=== PATIENT | female | born 1995 | race Caucasian/White ===

== ENCOUNTER → 2016-07-01 | Outpatient (CLI) | payer OTHER ==
[2016-07-01 17:23] LABS: Anion Gap 11 mmol/L; Blood Urea Nitrogen 11 mg/dL (7-17); Calcium 9.6 mg/dL (8.4-10.2); Carbon Dioxide 25 mmol/L (22-30); Chloride 105 mmol/L (98-107); Glucose 87 mg/dL (74-99); Non-African American GFR(MDRD) >60 (>60 ml/min/1.73 sqM); Sodium 141 mmol/L (137-145)
[2016-07-01 17:53] LABS: Hepatitis B Surface Ag Index 0.07
[2016-07-01 17:59] LABS: Hepatitis B Core IgM Index 0.05
[2016-07-01 18:12] LABS: Hepatitis C Virus IgG Ab Reactive (Negative)
[2016-07-02 07:18] LABS: HIV-1/HIV-2 Ab Screen NONREAC (NON REAC)
[2016-07-03 14:36] LABS: Hepatits C Virus RNA, Quant <12 IU/mL (<12); LOG HCV IU/mL <1.08 (<1.08)
== END ==
LOC: LABWHC1 16:45
PROVIDERS: ATTEND Internal Medicine Infectious Disease
DX: B18.2 Chronic viral hepatitis C (principal)
CPT/HCPCS: 36415; 80048; 80074; 87389; 87522

== ENCOUNTER 2016-11-20 20:27 | Emergency (ER) | payer OTHER ==
[2016-11-20 20:35] VITALS: BP 117/65; PULSE 88; RESP 18; TEMP 98.6
--- NOTE | 2016-11-20 20:38 | ED ---
Extremity Problem HPI - General Chief complaint: Extremity Problem,Nontraumatic Stated complaint: Leg Pain Time Seen by Provider: 11/20/16 20:33 Source: patient Mode of arrival: ambulatory Limitations: no limitations - History of Present Illness Initial comments: 21-year-old male patient presents to emergency department for evaluation of a bruise to her left upper thigh. Patient states she does not recall any injury to this area. Patient is concerned because the area feels hard that she may have a blood clot. Patient has no history of blood clots or coagulation abnormalities. Patient denies any pain to the area. Patient denies any difficulty ambulating, hip pain, or knee pain. He denies any fever, chills, nausea, vomiting, dizziness, weakness, palpitations, shortness of breath or chest pain. - Related Data Previous Rx's Medication Instructions Recorded Ibuprofen [Motrin] 600 mg PO Q8HR PRN #30 tab 10/17/15 traMADol HCl [Ultram] 50 mg PO Q6H PRN #20 tab 10/17/15 Allergies Allergy/AdvReac Type Severity Reaction Status Date / Time No Known Allergies Allergy Verified 11/20/16 20:35 Review of Systems ROS Statement: Those systems with pertinent positive or pertinent negative responses have been documented in the HPI. ROS Other: All systems not noted in ROS Statement are negative. Past Medical History Past Medical History: No Reported History History of Any Multi-Drug Resistant Organisms: None Reported Past Surgical History: No Surgical Hx Reported Past Psychological History: Bipolar Smoking Status: Current every day smoker Past Alcohol Use History: Occasional Past Drug Use History: None Reported General Exam Limitations: no limitations General appearance: alert, in no apparent distress Head exam: Present: atraumatic, normocephalic, normal inspection Eye exam: Present: normal appearance, PERRL, EOMI. Absent: scleral icterus, conjunctival injection, periorbital swelling Respiratory exam: Present: normal lung sounds bilaterally. Absent: respiratory distress, wheezes, rales, rhonchi, stridor Cardiovascular Exam: Present: regular rate, normal rhythm, normal heart sounds. Absent: systolic murmur, diastolic murmur, rubs, gallop, clicks GI/Abdominal exam: Present: soft, normal bowel sounds. Absent: distended, tenderness, guarding, rebound, rigid Extremities exam: Present: full ROM, normal capillary refill, other. Absent: normal inspection (Small half-dollar size area of ecchymosis noted to the left upper thigh, purple in color. Tender to palpation.), tenderness, pedal edema, joint swelling, calf tenderness Neurological exam: Present: alert, oriented X3, CN II-XII intact Psychiatric exam: Present: normal affect, normal mood Skin exam: Present: warm, dry, intact, normal color. Absent: rash Course Vital Signs 11/20/16 20:33 Temperature 98.6 F Pulse Rate 88 Respiratory 18 Rate Blood Pressure 117/65 O2 Sat by Pulse 99 Oximetry Medical Decision Making - Medical Decision Making 21-year-old female patient presented to emergency room in stable evaluation of a bruise to her left upper thigh. Patient was concerned that she may have a blood clot. No other signs or symptoms of blood clot present. Did discuss with patient the nature of a bruise, and a blood clot is very unlikely. Patient instructed to follow up with her primary care physician for recheck in one to 2 days. Patient was instructed to return for any new, worsening, or concerning symptoms. Disposition Clinical Impression: Ecchymosis Disposition: HOME SELF-CARE Condition: Good Instructions: Contusion in Adults (ED) Additional Instructions: Apply ice to area. Take Avapro and or Tylenol for pain control. Follow-up with primary care physician to give any further problems. Return for any new, worsening, or concerning symptoms. Referrals: Smooth Blackmon MD [Primary Care Provider] - 1-2 days Time of Disposition: 20:38
== END 2016-11-20 20:43 | disposition home or self-care (01) ==
LOC: EC 20:27
DX: S70.12XA Contusion of left thigh, initial encounter (principal); F17.200 Nicotine dependence, unspecified, uncomplicated
CPT/HCPCS: 99283

== ENCOUNTER 2017-01-19 23:21 | Emergency (ER) | payer OTHER ==
[2017-01-19 23:34] VITALS: RESP 18; TEMP 97.9
[2017-01-20] MEDS ORDERED: diphenhydrAMINE 50 MG/ML 1 ML VIAL IVP STA (00:12)
[2017-01-20] MEDS ORDERED: HYDROmorphone 0.5 MG/0.5 ML SYRINGE IVP STA (00:12)
[2017-01-20] MEDS ORDERED: METOCLOPRAMIDE 5 MG/ML 2 ML VIAL IVP STA (00:12)
[2017-01-20] MEDS ORDERED: SODIUM CHLORIDE 0.9% 500 ML IV STA (00:12)
[2017-01-20 00:44] LABS: Basophils # (A) 0.1 k/uL (0-0.2); Basophils % (A) 1 %; CH 30.1; CHCM 32.5; Eosinophils # (A) 0.4 k/uL (0-0.7); Eosinophils % (A) 3 %; HCT 43.8 % (34.0-46.0); HDW 2.28; HGB 14.6 gm/dL (11.4-16.0); Luc # (Auto) 0.14; Luc % (Auto) 1; Lymphocytes # (A) 2.3 k/uL (1.0-4.8); Lymphocytes % (A) 21 %; MCHC 33.3 g/dL (31.0-37.0); MCV 93.1 fL (80.0-100.0); Mean Platelet Volume 8.8; Monocytes # (A) 0.6 k/uL (0-1.0); Monocytes % (A) 6 %; Neutrophils # (A) 7.6 k/uL (1.3-7.7); Neutrophils % (A) 69 %; RBC 4.71 m/uL (3.80-5.40); RDW 12.7 % (11.5-15.5); WBC 11.1 k/uL (3.8-10.6); WBC (Perox) 11.18
[2017-01-20 00:57] LABS: ALT 24 U/L (9-52); AST 17 U/L (14-36); Alkaline Phosphatase 52 U/L (38-126); Amylase 46 U/L (30-110); Anion Gap 10 mmol/L; Blood Urea Nitrogen 10 mg/dL (7-17); Calcium 9.8 mg/dL (8.4-10.2); Carbon Dioxide 25 mmol/L (22-30); Chloride 107 mmol/L (98-107); Glucose 95 mg/dL (74-99); Non-African American GFR(MDRD) >60 (>60 ml/min/1.73 sqM); Sodium 142 mmol/L (137-145); Total Bilirubin 0.5 mg/dL (0.2-1.3)
[2017-01-20 01:06] LABS: Amorphous Sediment,Urine Occasional /hpf; Appearance,Urine Turbid (Clear); Bilirubin,Urine Negative (Negative); Glucose,Urine (UA) Negative (Negative); Ketones,Urine Negative (Negative); Leukocyte Esterase,Urine Negative (Negative); Nitrite,Urine Negative (Negative); Particle Count 12995; Protein,Urine Trace (Negative); Specific Gravity,Urine 1.017 (1.001-1.035); Squamous Epithelial Cell,Urine 6 /hpf (0-4); UA Billing (MACRO vs. MICRO) MICRO
[2017-01-20] MEDS ORDERED: RX INFO: IV CONTRAST WAS GIVEN 1 EACH MISC MISCELLANE PRN (01:22)
--- NOTE | 2017-01-20 01:56 | XR ---
EXAM: XR Abdomen Complete, 2 or More Views CLINICAL HISTORY: Abdominal pain TECHNIQUE: Frontal view of the abdomen/pelvis with upright view of the abdomen. COMPARISON: No relevant prior studies available. FINDINGS: Intraperitoneal space: No free air. Gastrointestinal tract: Moderate amount stool and gas noted throughout the colon. Nonobstructive bowel gas pattern. Bones/joints: No acute osseous abnormality. Other findings: No suspicious calcifications. IMPRESSION: No acute findings.
--- NOTE | 2017-01-20 02:39 | CT ---
EXAM: CT Abdomen and Pelvis With Intravenous Contrast CLINICAL HISTORY: None. TECHNIQUE: Axial computed tomography images of the abdomen and pelvis with intravenous contrast. CTDI is 5.38, 4.90 mGy and DLP is 398.30 mGy-cm. This CT exam was performed using one or more of the following dose reduction techniques: automated exposure control, adjustment of the mA and/or kV according to patient size, and/or use of iterative reconstruction technique. COMPARISON: No relevant prior studies available. FINDINGS: Lower thorax: No acute findings. ABDOMEN: Liver: Unremarkable. Gallbladder and bile ducts: Unremarkable. Pancreas: Unremarkable. Spleen: Unremarkable. Adrenals: Unremarkable. Kidneys and ureters: Unremarkable. Stomach and bowel: Unremarkable. Appendix: No findings to suggest acute appendicitis. PELVIS: Bladder: Small amount of gas within urinary bladder, likely secondary to recent instrumentation Reproductive: Enlarged right adnexa with marked adjacent stranding and small to moderate amount of blood products within the pelvis. There is a hyperdense lesion seen within the central adnexa which may represent a hemorrhagic cyst measuring up to 4.7 cm. 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 ABDOMEN and PELVIS: Intraperitoneal space: Unremarkable. Bones/joints: No acute fracture. No dislocation. Soft tissues: Unremarkable. Vasculature: Unremarkable. Lymph nodes: Unremarkable. IMPRESSION: Enlarged right adnexa with marked adjacent stranding and small to moderate amount of blood products within the pelvis. There is a hyperdense lesion seen within the central adnexa which may represent a hemorrhagic cyst measuring up to 4.7 cm. Consider pelvic ultrasound for further evaluation.
[2017-01-20] MEDS ORDERED: HYDROmorphone 1 MG/ML 1 ML SYRINGE IVP STA (02:54)
[2017-01-20 03:11] VITALS: BP 120/78; PULSE 93
[2017-01-20] MEDS ORDERED: ACET/COD 300 MG/30 MG STARTER PACK 6 TAB BTL PO STA (03:25)
--- NOTE | 2017-01-20 03:28 | ED ---
Abdominal Pain HPI - General Chief Complaint: Abdominal Pain Stated Complaint: Abd Pain Time Seen by Provider: 01/19/17 23:57 Source: patient, family Mode of arrival: ambulatory Limitations: no limitations - History of Present Illness Initial Comments: 21-year-old female patient presents for evaluation of right lower quadrant abdominal pain. Patient states this started suddenly around 8 PM this evening. States she has had 3 episodes of vomiting since this started. She states that the pain is severe and radiates to her back. Patient states the pain worsens with any movement. Patient is unsure if she is . She denies any abnormal vaginal bleeding or discharge. Patient denies any recent rash, fever, chills, shortness breath, chest pain, diarrhea, constipation, numbness, tingling, dizziness, weakness, hematuria, dysuria, urinary urgency, urinary frequency, headache, visual changes, or any other complaints. She is requesting to be tested for STDs. Patient's last period was 01/05/2017. - Related Data Home Medications Medication Instructions Recorded Confirmed ALPRAZolam [Xanax] 0.5 mg PO DAILY PRN 01/19/17 01/19/17 Dextroamphetamine/Amphetamine 5 mg PO DAILY 01/19/17 01/19/17 [Adderall] Sertraline [Zoloft] 12.5 mg PO BID 01/19/17 01/19/17 Previous Rx's Medication Instructions Recorded Hydrocodone/Acetaminophen [[place] 1 tab PO Q6HR PRN #20 tab 01/20/17 5-325] Allergies Allergy/AdvReac Type Severity Reaction Status Date / Time No Known Allergies Allergy Verified 01/19/17 23:34 Review of Systems ROS Statement: Those systems with pertinent positive or pertinent negative responses have been documented in the HPI. ROS Other: All systems not noted in ROS Statement are negative. Past Medical History Past Medical History: No Reported History History of Any Multi-Drug Resistant Organisms: None Reported Past Surgical History: No Surgical Hx Reported Past Psychological History: ADD/ADHD, Anxiety, Bipolar Smoking Status: Current every day smoker Past Alcohol Use History: Occasional Past Drug Use History: None Reported General Exam Limitations: no limitations General appearance: alert, in distress (Mild), other (This is a well-developed, well-nourished adult female patient in mild distress related to pain. Vital signs upon presentation were temperature 97.9F, pulse 96, respirations 18, blood pressure 115/74, pulse ox 100% on room air.) Eye exam: Present: normal appearance, PERRL, EOMI. Absent: scleral icterus, conjunctival injection, periorbital swelling ENT exam: Present: normal exam, normal oropharynx, mucous membranes moist Neck exam: Present: normal inspection. Absent: tenderness, meningismus, lymphadenopathy Respiratory exam: Present: normal lung sounds bilaterally. Absent: respiratory distress, wheezes, rales, rhonchi, stridor Cardiovascular Exam: Present: regular rate, normal rhythm, normal heart sounds. Absent: systolic murmur, diastolic murmur, rubs, gallop, clicks GI/Abdominal exam: Present: soft, tenderness (Right lower quadrant tenderness), normal bowel sounds. Absent: distended, guarding, rebound, rigid Back exam: Present: normal inspection. Absent: CVA tenderness (R), CVA tenderness (L) Neurological exam: Present: alert, oriented X3, CN II-XII intact Psychiatric exam: Present: normal affect, normal mood Skin exam: Present: warm, dry, intact, normal color. Absent: rash Course Vital Signs 01/19/17 01/20/17 23:26 03:09 Temperature 97.9 F Pulse Rate 96 93 Respiratory 18 18 Rate Blood Pressure 115/74 120/78 O2 Sat by Pulse 100 99 Oximetry Medical Decision Making - Medical Decision Making 21-year-old female patient presents for evaluation of right lower quadrant abdominal pain. Labs are reviewed and did show an elevated white blood cell count 11.1. Analysis is unremarkable. Urine hCG was negative. KUB of the abdomen shows overall nonobstructive bowel gas pattern. CT of the abdomen and pelvis that showed a enlarged right adnexa with marked adjacent stranding and small to moderate amount of blood products within the pelvis. There is a hyperdense lesion seen within the central adnexa which may represent a hemorrhagic cyst measuring up to 4.7 cm. Pelvic exam was performed and patient did have significant right adnexal tenderness, however no mass or swelling was noted. Vaginal cultures were obtained. Patient was given Dilaudid IV push here in the department, this did improve her symptoms. I did give patient a prescription for an outpatient ultrasound with results to be forwarded to her primary care physician. It is recommended that she obtain referral to information delivery analyst for further evaluation from her primary care doctor. She states she does have an appointment with him on 01/25/2017, she agreed to call in the morning to see if she could have a sooner appointment. She was given oral pain medications. She is instructed to return here immediately for any new, worsening, or concerning symptoms. She verbalizes understanding and agrees with this plan. - Lab Data Result diagrams: 01/20/17 00:20 01/20/17 00:20 Lab Results 01/20/17 01/20/17 01/20/17 Range/Units 00:20 00:20 00:20 WBC 11.1 H (3.8-10.6) k/uL RBC 4.71 (3.80-5.40) m/uL Hgb 14.6 (11.4-16.0) gm/dL Hct 43.8 (34.0-46.0) % MCV 93.1 (80.0-100.0) fL MCH 31.0 (25.0-35.0) pg MCHC 33.3 (31.0-37.0) g/dL RDW 12.7 (11.5-15.5) % Plt Count 209 (150-450) k/uL Neutrophils % 69 % Lymphocytes % 21 % Monocytes % 6 % Eosinophils % 3 % Basophils % 1 % Neutrophils # 7.6 (1.3-7.7) k/uL Lymphocytes # 2.3 (1.0-4.8) k/uL Monocytes # 0.6 (0-1.0) k/uL Eosinophils # 0.4 (0-0.7) k/uL Basophils # 0.1 (0-0.2) k/uL Sodium 142 (137-145) mmol/L Potassium 4.0 (3.5-5.1) mmol/L Chloride 107 (98-107) mmol/L Carbon Dioxide 25 (22-30) mmol/L Anion Gap 10 mmol/L BUN 10 (7-17) mg/dL Creatinine 0.70 (0.52-1.04) mg/dL Est GFR (MDRD) Af Amer >60 (>60 ml/min/1.73 sqM) Est GFR (MDRD) Non-Af >60 (>60 ml/min/1.73 sqM) Glucose 95 (74-99) mg/dL Calcium 9.8 (8.4-10.2) mg/dL Total Bilirubin 0.5 (0.2-1.3) mg/dL AST 17 (14-36) U/L ALT 24 (9-52) U/L Alkaline Phosphatase 52 (38-126) U/L Total Protein 7.0 (6.3-8.2) g/dL Albumin 4.5 (3.5-5.0) g/dL Amylase 46 (30-110) U/L Lipase 75 (23-300) U/L Urine Color Urine Appearance (Clear) Urine pH (5.0-8.0) Ur Specific [place] (1.001-1.035) Urine Protein (Negative) Urine Glucose (UA) (Negative) Urine Ketones (Negative) Urine Blood (Negative) Urine Nitrite (Negative) Urine Bilirubin (Negative) Urine Urobilinogen (<2.0) mg/dL Ur Leukocyte Esterase (Negative) Ur Squamous Epith Cells (0-4) /hpf Amorphous Sediment (None) /hpf Urine HCG, Qual Not Detected (Not Detectd) Trichomonas Ag (Rapid) (Negative) 01/20/17 01/20/17 Range/Units 00:20 03:00 WBC (3.8-10.6) k/uL RBC (3.80-5.40) m/uL Hgb (11.4-16.0) gm/dL Hct (34.0-46.0) % MCV (80.0-100.0) fL MCH (25.0-35.0) pg MCHC (31.0-37.0) g/dL RDW (11.5-15.5) % Plt Count (150-450) k/uL Neutrophils % % Lymphocytes % % Monocytes % % Eosinophils % % Basophils % % Neutrophils # (1.3-7.7) k/uL Lymphocytes # (1.0-4.8) k/uL Monocytes # (0-1.0) k/uL Eosinophils # (0-0.7) k/uL Basophils # (0-0.2) k/uL Sodium (137-145) mmol/L Potassium (3.5-5.1) mmol/L Chloride (98-107) mmol/L Carbon Dioxide (22-30) mmol/L Anion Gap mmol/L BUN (7-17) mg/dL Creatinine (0.52-1.04) mg/dL Est GFR (MDRD) Af Amer (>60 ml/min/1.73 sqM) Est GFR (MDRD) Non-Af (>60 ml/min/1.73 sqM) Glucose (74-99) mg/dL Calcium (8.4-10.2) mg/dL Total Bilirubin (0.2-1.3) mg/dL AST (14-36) U/L ALT (9-52) U/L Alkaline Phosphatase (38-126) U/L Total Protein (6.3-8.2) g/dL Albumin (3.5-5.0) g/dL Amylase (30-110) U/L Lipase (23-300) U/L Urine Color Yellow Urine Appearance Turbid H (Clear) Urine pH 7.0 (5.0-8.0) Ur Specific [place] 1.017 (1.001-1.035) Urine Protein Trace H (Negative) Urine Glucose (UA) Negative (Negative) Urine Ketones Negative (Negative) Urine Blood Negative (Negative) Urine Nitrite Negative (Negative) Urine Bilirubin Negative (Negative) Urine Urobilinogen 2.0 (<2.0) mg/dL Ur Leukocyte Esterase Negative (Negative) Ur Squamous Epith Cells 6 H (0-4) /hpf Amorphous Sediment Occasional H (None) /hpf Urine HCG, Qual (Not Detectd) Trichomonas Ag (Rapid) Negative (Negative) - Radiology Data Radiology results: report reviewed, image reviewed CT of the abdomen and pelvis results were reviewed in full. Impression by Dr. [place] show enlarged right adnexa with market adjacent stranding and small to moderate amount of blood products within the pelvis. There is a hyperdense lesion seen within the central adnexa which may represent a hemorrhagic cyst measuring up to 4.7 cm. Appendix was unremarkable for appendicitis. Disposition Clinical Impression: Hemorrhagic cyst of right ovary, Pelvic pain Disposition: HOME SELF-CARE Condition: Good Instructions: Ovarian Cyst (ED), Pelvic Pain in Women (ED) Additional Instructions: Take pain medications as directed. Have ultrasound performed as soon as possible. Follow-up with her primary care physician for recheck in 1-2 days. Return here immediately for any new, worsening, or concerning symptoms. Prescriptions: Hydrocodone/Acetaminophen [[place] 5-325] 1 tab PO Q6HR PRN #20 tab PRN Reason: Pain Referrals: Smooth Blackmon MD [Primary Care Provider] - 1-2 days Time of Disposition: 03:28
== END 2017-01-20 03:45 | disposition home or self-care (01) ==
LOC: EC 23:21
DX: N83.201 Unspecified ovarian cyst, right side (principal); D72.829 Elevated white blood cell count, unspecified; N94.89 Other specified conditions associated with female genital organs and menstrual cycle; F90.9 Attention-deficit hyperactivity disorder, unspecified type; F41.9 Anxiety disorder, unspecified; F17.200 Nicotine dependence, unspecified, uncomplicated; Z79.899 Other long term (current) drug therapy
CPT/HCPCS: 99284 ×2; 96374 ×2; 96375 ×3; 96376 ×2; 96361 ×4; 36415; 80053; 87591; 87491; 82150; 83690; 85025; 81001; 81025; 87808; 87070; 74000; 74177; J1200; J2765; J1170 ×2; Q9967; 87205